=== PATIENT | male | born 1950 | race Caucasian/White ===

== ENCOUNTER 2023-09-20 09:20 | Inpatient (IN) | payer MEDICARE ==
[~2023-09-20] VITALS: Ht 172.7 cm; Wt 76.2 kg
[2023-09-20] VITALS (7 sets, daily range): BP systolic 102–110; BP diastolic 61–72; TEMP 97.3–97.9; O2SAT 91–95
[~2023-09-20 09:20] MED LIST: ACET65TA; ACET65TA OR; ATOR40TA75 PO; B-12100021 PO; COUM1TAB17; COUM1TAB18; COUM1TAB18 OR; OMEP20TA7 OR; OXYC10TA97; PERC5TAB8; PERC5TAB8 OR; PERC7.5T8; PERC7.5T8 OR; VITA1CAP25 PO
[2023-09-20] MEDS ORDERED: CYAN500T20 PO (10:05)
[2023-09-20] MEDS ORDERED: CHOL125C5 PO (10:05)
[2023-09-20] MEDS ORDERED: HOME MED LIST COMPLETE! XX SCH (10:10)
[2023-09-20] MEDS ORDERED: ONDANSETRON 4MG 2ML VIAL As Ordered ONE (11:41)
[2023-09-20] MEDS ORDERED: propofoL 200 MG/20 ML VIAL As Ordered ONE (11:41)
[2023-09-20] MEDS ORDERED: LIDOCAINE 2% 100MG/5ML SDV (FOR ANES.) As Ordered ONE (11:41)
[2023-09-20] MEDS ORDERED: fentaNYL 100 MCG/2 ML INJECTION As Ordered ONE (11:41)
[2023-09-20] MEDS ORDERED: MIDAZOLAM INJ 2MG/2ML VIAL As Ordered ONE (11:41)
[2023-09-20] MEDS ORDERED: ROCURONIUM BROMIDE 50MG/5ML VIAL As Ordered ONE (11:41)
[2023-09-20] MEDS ORDERED: KETOROLAC 60MG 2ML VIAL As Ordered ONE (11:46)
[2023-09-20] MEDS ORDERED: SUGAMMADEX SODIUM 500 MG/5 ML VIAL (BRIDION) As Ordered ONE (11:46)
[2023-09-20] MEDS: ceFAZolin SOD 2 GM in IV 1 EA IV ONE (12:40)
[2023-09-20] MEDS: HEPARIN SOD (PORCINE) 5000UNITS/ML 1ML VIAL/SYRINGE SQ ONE (12:51)
[2023-09-20] MEDS ORDERED: HYDROmorphone HCL 2MG/ML 1ML VIAL As Ordered ONE (13:07)
[2023-09-20] MEDS ORDERED: ACETAMINOPHEN 1000MG 100ML IV BAG As Ordered ONE (13:13)
[2023-09-20] MEDS ORDERED: LABETALOL 100MG/20ML VIAL As Ordered ONE (13:43)
[2023-09-20] MEDS ORDERED: hydrALAZINE 20MG/ML 1ML VIAL As Ordered ONE (13:50)
[2023-09-20] MEDS ORDERED: dexmedeTOMIDine (4MCG/ML)200MCG/50ML BTL (PRECEDEX) As Ordered ONE (14:00)
[2023-09-20] MEDS ORDERED: ONDANSETRON 4MG 2ML VIAL IV PRN ×2 (14:00→16:40)
[2023-09-20] MEDS ORDERED: ACETAMINOPHEN TAB 650MG DOSE (2X325MG) PO PRN (14:00)
[2023-09-20] MEDS: ceFAZolin 1GM VIAL As Ordered ONE (16:30)
[2023-09-20] MEDS ORDERED: HYDROMORPHONE HCL 0.5 MG/ 0.5 ML SYRINGE IV PRN (16:40)
[2023-09-20] MEDS ORDERED: fentaNYL 100 MCG/2 ML INJECTION IV PRN (16:40)
[2023-09-20] MEDS ORDERED: oxyCODONE 5MG TAB PO PRN (16:40)
[2023-09-20] MEDS: LIDOCAINE 1% SDV 30ML VIAL As Ordered ONE (16:47)
[2023-09-20] MEDS: LR 1,000 ML IV SCH (18:11)
[2023-09-20 18:13] LABS: HEMATOCRIT 42.3 % (42.0-52.0); HEMOGLOBIN 14.1 g/dl (13.5-17.5); MEAN CORPUSCULAR HEMOGLOBIN 29.1 pg (27.0-33.0); MEAN CORPUSCULAR HGB CONC 33.3 g/dl (32.0-36.5); MEAN CORPUSCULAR VOLUME 87.4 fl (80.0-96.0); PLATELET COUNT, AUTOMATED 244 10^3/uL (150-450); RED BLOOD COUNT 4.84 10^6/uL (4.30-6.10); WHITE BLOOD COUNT 12.5 10^3/uL (4.0-10.0)
[2023-09-20] MEDS: NS 1,000 ML IV SCH (18:31)
[2023-09-20 18:38] LABS: BLOOD UREA NITROGEN 12 MG/DL (9-23); CALCIUM LEVEL 8.6 MG/DL (8.3-10.6); CARBON DIOXIDE LEVEL 26 MMOL/L (20-31); CHLORIDE LEVEL 107 MMOL/L (98-107); CREATININE FOR GFR 1.11 MG/DL (0.70-1.30); GLOMERULAR FILTRATION RATE > 60.0 (>42); GLUCOSE, FASTING 145 MG/DL (74-106); POTASSIUM SERUM 4.6 MMOL/L (3.5-5.1); SODIUM LEVEL 139 MMOL/L (136-145)
[2023-09-20] MEDS: HEPARIN SOD (PORCINE) 5000UNITS/ML 1ML VIAL/SYRINGE SC SCH (21:38)
[2023-09-20] MEDS: DOCUSATE SODIUM 100MG CAPSULE PO SCH (21:38)
[2023-09-20] MEDS: ceFAZolin SOD 1 GM in D5W MINI-BAG PLUS 50 ML IV SCH (23:58)
[2023-09-21] VITALS (11 sets, daily range): BP systolic 112–142; BP diastolic 64–76; TEMP 98.1–99; O2SAT 2–95
[2023-09-21] MEDS: PERCOCET 5MG/325MG TAB PO PRN ×2 (05:58→17:28)
[2023-09-21 06:03] LABS: HEMATOCRIT 38.7 % (42.0-52.0); HEMOGLOBIN 12.8 g/dl (13.5-17.5); MEAN CORPUSCULAR HEMOGLOBIN 28.9 pg (27.0-33.0); MEAN CORPUSCULAR HGB CONC 33.1 g/dl (32.0-36.5); MEAN CORPUSCULAR VOLUME 87.4 fl (80.0-96.0); PLATELET COUNT, AUTOMATED 211 10^3/uL (150-450); RED BLOOD COUNT 4.43 10^6/uL (4.30-6.10); WHITE BLOOD COUNT 9.3 10^3/uL (4.0-10.0)
[2023-09-21 06:31] LABS: BLOOD UREA NITROGEN 15 MG/DL (9-23); CALCIUM LEVEL 8.6 MG/DL (8.3-10.6); CARBON DIOXIDE LEVEL 27 MMOL/L (20-31); CHLORIDE LEVEL 107 MMOL/L (98-107); CREATININE FOR GFR 0.98 MG/DL (0.70-1.30); GLOMERULAR FILTRATION RATE > 60.0 (>42); GLUCOSE, FASTING 111 MG/DL (74-106); POTASSIUM SERUM 4.5 MMOL/L (3.5-5.1); SODIUM LEVEL 139 MMOL/L (136-145)
[2023-09-21] MEDS: ATORVASTATIN 20 MG TAB PO SCH (08:06)
[2023-09-21] MEDS ORDERED: PERCOCET PO (15:31)
[2023-09-21] MEDS ORDERED: CIPR-249 PO (15:31)
[2023-09-21] MEDS ORDERED: COLA100C5 PO (15:31)
[2023-09-22] VITALS (15 sets, daily range): BP systolic 148–176; BP diastolic 67–82; TEMP 97.9–98.8; O2SAT 85–93
[2023-09-22 07:08] LABS: HEMATOCRIT 39.7 % (42.0-52.0); MEAN CORPUSCULAR HEMOGLOBIN 28.5 pg (27.0-33.0); MEAN CORPUSCULAR HGB CONC 32.7 g/dl (32.0-36.5); MEAN CORPUSCULAR VOLUME 87.1 fl (80.0-96.0); PLATELET COUNT, AUTOMATED 192 10^3/uL (150-450); RED BLOOD COUNT 4.56 10^6/uL (4.30-6.10); WHITE BLOOD COUNT 7.8 10^3/uL (4.0-10.0)
[2023-09-22 07:48] LABS: BLOOD UREA NITROGEN 13 MG/DL (9-23); CALCIUM LEVEL 8.8 MG/DL (8.3-10.6); CARBON DIOXIDE LEVEL 26 MMOL/L (20-31); CHLORIDE LEVEL 105 MMOL/L (98-107); CREATININE FOR GFR 0.92 MG/DL (0.70-1.30); GLOMERULAR FILTRATION RATE > 60.0 (>42); GLUCOSE, FASTING 97 MG/DL (74-106); POTASSIUM SERUM 4.3 MMOL/L (3.5-5.1); SODIUM LEVEL 139 MMOL/L (136-145)
== END 2023-09-22 13:55 | disposition home or self-care (01) | DRG 708 ==
LOC: M OR 09:20 → M MSPAV 18:03
PROVIDERS: ADMIT Urology; ATTEND Urology
PROC: 07BC4ZZ Excision of Pelvis Lymphatic, Percutaneous Endoscopic Approach (ICD-10-PCS; 2023-09-20)
PROC: 8E0W4CZ Robotic Assisted Procedure of Trunk Region, Percutaneous Endoscopic Approach (ICD-10-PCS; 2023-09-20)
PROC: 0VT04ZZ Resection of Prostate, Percutaneous Endoscopic Approach (ICD-10-PCS; principal; 2023-09-20 12:00)
DX: C61 Malignant neoplasm of prostate (principal); R09.02 Hypoxemia; E78.5 Hyperlipidemia, unspecified; I35.0 Nonrheumatic aortic (valve) stenosis; K21.9 Gastro-esophageal reflux disease without esophagitis; R73.03 Prediabetes; Z79.899 Other long term (current) drug therapy